=== PATIENT | female | born 1980 | race Caucasian/White ===

== ENCOUNTER 2018-11-04 17:00 | Observation (INO) ==
[2018-11-04 17:54] LABS: Amphetamine Screen,Urine Negative ng/mL (Cutoff=1000); Barbiturate Screen,Urine Negative ng/mL (Cutoff=200); Benzodiazepines Screen,Urine Negative ng/mL (Cutoff=200); Cannabinoid Screen,Urine Negative ng/mL (Cutoff = 50); Cocaine Screen,Urine Negative ng/mL (Cutoff= 300); Opiate Screen,Urine Negative ng/mL (Cutoff=300); Phencyclidine Screen,Urine Negative ng/mL (Cutoff=25)
[2018-11-04 17:55] LABS: Bilirubin,Urine Small (Negative); Blood,Urine Negative (Negative); Clarity,Urine Clear (Clear); Color,Urine Yellow (Yellow); Glucose,Urine (UA) Normal (Normal); Ketones,Urine Negative (Negative); Leukocyte Esterase,Urine Moderate (Negative); Nitrite,Urine Negative (Negative); PH,Urine 5.5 pH Units (5.0-8.0); Protein,Urine Negative (Neg-Trace); Specific Gravity,Urine 1.029 (1.010-1.025); Urobilinogen,Urine Normal (Normal)
[2018-11-04 17:58] LABS: Bacteria,Urine Few per hpf (None-Few); Hyaline Casts,Urine None Seen per lpf (None-Few); RBC,Urine 0-3 per hpf (0-3); Squamous Epithelial Cell,Urine Many per lpf (None-Few)
[2018-11-04 17:59] LABS: Basophils % 0.5 %; Eosinophils # 0.1 K/mcL (0.0-0.6); Eosinophils % 1.4 %; Hematocrit 37.8 % (35.3-44.9); Hemoglobin 12.5 g/dL (11.5-15.4); Immature Granulocytes % 0.2 % (0-4); Lymphocytes # 2.2 K/mcL (0.6-4.6); Lymphocytes % 25.3 %; Mean Corpuscular HGB Conc 33.1 g/dL (31.6-35.5); Mean Corpuscular Hemoglobin 29.3 pg (28.0-33.3); Mean Corpuscular Volume 88.5 fL (83.0-100.0); Monocytes # 0.6 K/mcL (0.0-1.3); Monocytes % 6.4 %; Neutrophils # 5.7 K/mcL (1.6-8.9); Platelet Count 228 K/mcL (140-400); Red Blood Count 4.27 M/mcL (3.82-4.97); Red Cell Distribution Width 12.4 % (11.5-14.5); Segmented Neutrophils % 66.2 %; White Blood Count 8.6 K/mcL (4.3-11.1)
[2018-11-04 18:15] LABS: Acetaminophen < 10 mcg/mL (10-20); BUN/Creatinine Ratio 17 (6-26); Blood Urea Nitrogen 14 mg/dL (6-20); Calcium 9.1 mg/dL (8.6-10.3); Carbon Dioxide 28 mEq/L (23-29); Chloride 105 mEq/L (98-107); Ethanol < 10 mg/dL (Less than 10); Glucose 100 mg/dL (70-105); Osmolality,Calculated 283 (280-300); Potassium 3.7 mEq/L (3.5-5.1); Salicylate < 2.5 mg/dL (15.0-30.0); Sodium 136 mEq/L (136-145); eGFR For African Americans > 60 (> 60); eGFR For Non-African Americans > 60 (> 60)
--- NOTE | 2018-11-04 18:23 | Emergency Department Note ---
Disposition Clinical Impression: Suicidal ideation Disposition: Admitted As Inpatient Condition: Good Referrals: NONE,PCP [Primary Care Provider] - Forms: ED Satisfaction Letter Time of Disposition: 21:18 Psych HPI - General Chief Complaint: ED Psychiatric Symptoms Stated Complaint: Si Time Seen by Provider: 11/04/18 17:06 Source: patient, EMS Limitations: no limitations Nursing Notes Reviewed: Yes Vital Signs Reviewed: Yes - History of Present Illness HPI Narrative: 38 year old female presents to the ED with complaints of SI and states that she has had a hsitory of cutting in the attmempt to kill herself but otherwise was not successful one year ago and [facility]. .Jessica has a history of SI and states that her symtoms are worsening and she told her counselor today that if she went to sleep and didnt wake up that would be ok with her. She otherwise has no plan. Herber has had no changes in medications. Incraesed stressors in like and he rmajor depressive symptoms are worsening. - Related Data Allergies Allergy/AdvReac Type Severity Reaction Status Date / Time Amoxicillin Allergy Hives Verified 11/04/18 17:03 Erythromycin Base Allergy Hives Verified 11/04/18 17:03 Penicillins Allergy Hives Verified 11/04/18 17:03 sulfamethoxazole Allergy Hives Verified 11/04/18 17:03 [From Bactrim] trimethoprim [From Bactrim] Allergy Hives Verified 11/04/18 17:03 Constitutional: Denies: fever, chills, weakness, weight change Eyes: Denies: eye pain, eye discharge, vision change ENT ED: Denies: ear pain, throat pain, dental pain, hearing loss, epistaxis, congestion, dysphagia Cardiovascular: Denies: chest pain, palpitations, dyspnea on exertion, edema, syncope Respiratory: Denies: cough, dyspnea, wheezes, hemoptysis, stridor Gastrointestinal: Denies: abdominal pain, nausea, vomiting, diarrhea, constipation, hematemesis, melena, hematochezia Genitourinary: Denies: dysuria, frequency, hematuria, discharge Musculoskeletal: Denies: back pain, neck pain, arthralgia, myalgia Integumentary: Denies: rash, abrasion, lesions Neurological: Denies: headache, weakness, numbness, paresthesias, confusion, abnormal gait, vertigo Psychiatric: Reports: depression, suicidal thoughts. Denies: anxiety, homicidal thoughts, auditory hallucinations, visual hallucinations Endocrine: Denies: fatigue Hematological/Lymphatic: Denies: easy bleeding, easy bruising Allergic/Immunologic: Denies: facial swelling, urticaria Past Medical History - Past Medical History Medical history: Reports: no medical history Psychiatric history: Reports: ADHD, bipolar, depression, prior suicide attempt - Social History Smoking Status: Current every day smoker Alcohol use: Reports: none Drug use: Reports: none Physical Exam - General Limitations: no limitations General appearance: alert, in no apparent distress - Head Head exam: atraumatic, normocephalic, normal inspection - Eye Eye exam: Present: normal appearance, PERRL, EOMI - Expanded Eye Exam Pupils: Left: reactive - ENT ENT exam: normal exam, normal oropharynx, mucous membranes moist - Expanded ENT Exam External ear exam: Present: normal external inspection Mouth exam: Present: normal external inspection Teeth exam: Present: normal inspection Throat exam: Present: normal inspection - Neck Neck exam: Present: normal inspection, full ROM, trachea midline - Chest Chest inspection: Present: normal inspection, symmetric chest wall rise - Respiratory Respiratory exam: Present: normal lung sounds bilaterally - Cardiovascular Cardiovascular exam: Present: regular rate, normal rhythm, normal heart sounds - Abdominal Exam Abdominal exam: Present: soft, Non-Tender. Absent: tenderness, distention, guarding, rebound, rigidity - Extremities Exam Extremities exam: Present: normal inspection, full ROM. Absent: tenderness, pedal edema - Expanded Upper Extremity Exam Shoulder exam: Present: normal inspection, full ROM Arm exam: Present: normal inspection, full ROM Elbow exam: Present: normal inspection, full ROM Forearm/Wrist exam: Present: normal inspection, full ROM Hand exam: Present: normal inspection, full ROM Vascular exam: Normal: capillary refill, radial pulse - Expanded Lower Extremity Exam Hip/Pelvis exam: Present: normal inspection, full ROM Upper leg exam: Present: normal inspection, full ROM Knee exam: Present: normal inspection, full ROM Lower leg exam: Present: normal inspection, full ROM Ankle exam: Present: normal inspection, full ROM Foot/toe exam: Present: normal inspection, full ROM Neurovascular/Tendon exam: Absent: motor deficit, sensory deficit, tendon deficit - Back Exam Back exam: Present: normal inspection, full ROM. Absent: tenderness - Neurological Exam Neurological exam: Present: alert, oriented X3 - Expanded Neurological Exam Patient oriented to: Present: person, place, time Coma Scale Eye Opening: Spontaneous Coma Scale Motor Response: Obeys Commands Coma Scale Verbal Response: Oriented Coma Scale Total: 15 - Psychiatric Psychiatric exam: Present: depressed, flat affect - Skin Skin exam: Present: warm, dry, intact, normal color Course Course Narrative: I will treat with ativan at this time and also medically clear patinet then consult 1A - Reevaluation(s) Reevaluation #1: patient is medically cleared now. 1A constuled Time: 18:24 - Consultations Consultation #1: discussed case with 1A. She has been accepted to their facility. Time: 21:18 Vital Signs Temperature 98.5 F 11/04/18 17:08 Pulse Rate 86 11/04/18 17:08 Respiratory Rate 16 11/04/18 17:08 Blood Pressure 125/90 11/04/18 17:08 O2 Sat by Pulse Oximetry 100 11/04/18 17:08 Temperature 98.5 F 11/04/18 17:08 Pulse Rate 86 11/04/18 17:08 Respiratory Rate 16 11/04/18 17:08 Blood Pressure 125/90 11/04/18 17:08 O2 Sat by Pulse Oximetry 100 11/04/18 17:08 Oxygen Delivery Oxygen Delivery Room Air Psych - Lab Data Result diagrams: 11/04/18 17:44 11/04/18 17:44 Lab Results 11/04/18 11/04/18 11/04/18 Range/Units 17:34 17:34 17:44 WBC 8.6 (4.3-11.1) K/mcL RBC 4.27 (3.82-4.97) M/mcL Hgb 12.5 (11.5-15.4) g/dL Hct 37.8 (35.3-44.9) % MCV 88.5 (83.0-100.0) fL MCH 29.3 (28.0-33.3) pg MCHC 33.1 (31.6-35.5) g/dL RDW 12.4 (11.5-14.5) % Plt Count 228 (140-400) K/mcL MPV 10.0 (9.4-12.4) fL Immature Gran % 0.2 (0-4) % Seg Neutrophils % 66.2 % Lymphocytes % 25.3 % Monocytes % 6.4 % Eosinophils % 1.4 % Basophils % 0.5 % Neutrophils # 5.7 (1.6-8.9) K/mcL Lymphocytes # 2.2 (0.6-4.6) K/mcL Monocytes # 0.6 (0.0-1.3) K/mcL Eosinophils # 0.1 (0.0-0.6) K/mcL Basophils # 0.0 (0.0-0.2) K/mcL Sodium (136-145) mEq/L Potassium (3.5-5.1) mEq/L Chloride (98-107) mEq/L Carbon Dioxide (23-29) mEq/L BUN (6-20) mg/dL Creatinine (0.60-1.20) mg/dL Est GFR ( Amer) (> 60) Est GFR (Non-Af Amer) (> 60) BUN/Creatinine Ratio (6-26) Glucose (70-105) mg/dL Calculated Osmolality (280-300) Calcium (8.6-10.3) mg/dL Urine Color Yellow (Yellow) Urine Clarity Clear (Clear) Urine pH 5.5 (5.0-8.0) pH Units Ur Specific [place] 1.029 H (1.010-1.025) Urine Protein Negative (Neg-Trace) mg/dL Urine Glucose (UA) Normal (Normal) mg/dL Urine Ketones Negative (Negative) mg/dL Urine Blood Negative (Negative) Urine Nitrite Negative (Negative) Urine Bilirubin Small H (Negative) Urine Urobilinogen Normal (Normal) mg/dL Ur Leukocyte Esterase Moderate H (Negative) Urine Microscopic RBC 0-3 (0-3) per hpf Urine Microscopic WBC 5-15 H (0-3) per hpf Ur Squamous Epith Cells Many H (None-Few) per lpf Urine Bacteria Few (None-Few) per hpf Hyaline Casts None Seen (None-Few) per lpf Salicylates (15.0-30.0) mg/dL Urine Opiates Screen Negative (Dkwgel=355) ng/mL Ur Buprenorphine Scrn Negative (Cutoff=5) ng/mL Acetaminophen (10-20) mcg/mL Ur Barbiturates Screen Negative (Spdnmf=332) ng/mL Ur Phencyclidine Scrn Negative (Cutoff=25) ng/mL Ur Amphetamines Screen Negative (Dqhvar=8314) ng/mL U Benzodiazepines Scrn Negative (Pxylcy=002) ng/mL Urine Cocaine Screen Negative (Cutoff= 300) ng/mL U Marijuana (THC) Screen Negative (Cutoff = 50) ng/mL Ur Drug Screen Interp See Below Ethyl Alcohol (Less than 10) mg/dL 11/04/18 Range/Units 17:44 WBC (4.3-11.1) K/mcL RBC (3.82-4.97) M/mcL Hgb (11.5-15.4) g/dL Hct (35.3-44.9) % MCV (83.0-100.0) fL MCH (28.0-33.3) pg MCHC (31.6-35.5) g/dL RDW (11.5-14.5) % Plt Count (140-400) K/mcL MPV (9.4-12.4) fL Immature Gran % (0-4) % Seg Neutrophils % % Lymphocytes % % Monocytes % % Eosinophils % % Basophils % % Neutrophils # (1.6-8.9) K/mcL Lymphocytes # (0.6-4.6) K/mcL Monocytes # (0.0-1.3) K/mcL Eosinophils # (0.0-0.6) K/mcL Basophils # (0.0-0.2) K/mcL Sodium 136 (136-145) mEq/L Potassium 3.7 (3.5-5.1) mEq/L Chloride 105 (98-107) mEq/L Carbon Dioxide 28 (23-29) mEq/L BUN 14 (6-20) mg/dL Creatinine 0.82 (0.60-1.20) mg/dL Est GFR ( Amer) > 60 (> 60) Est GFR (Non-Af Amer) > 60 (> 60) BUN/Creatinine Ratio 17 (6-26) Glucose 100 (70-105) mg/dL Calculated Osmolality 283 (280-300) Calcium 9.1 (8.6-10.3) mg/dL Urine Color (Yellow) Urine Clarity (Clear) Urine pH (5.0-8.0) pH Units Ur Specific [place] (1.010-1.025) Urine Protein (Neg-Trace) mg/dL Urine Glucose (UA) (Normal) mg/dL Urine Ketones (Negative) mg/dL Urine Blood (Negative) Urine Nitrite (Negative) Urine Bilirubin (Negative) Urine Urobilinogen (Normal) mg/dL Ur Leukocyte Esterase (Negative) Urine Microscopic RBC (0-3) per hpf Urine Microscopic WBC (0-3) per hpf Ur Squamous Epith Cells (None-Few) per lpf Urine Bacteria (None-Few) per hpf Hyaline Casts (None-Few) per lpf Salicylates < 2.5 L (15.0-30.0) mg/dL Urine Opiates Screen (Wapjdy=023) ng/mL Ur Buprenorphine Scrn (Cutoff=5) ng/mL Acetaminophen < 10 L (10-20) mcg/mL Ur Barbiturates Screen (Sfecsm=694) ng/mL Ur Phencyclidine Scrn (Cutoff=25) ng/mL Ur Amphetamines Screen (Jqwkby=3486) ng/mL U Benzodiazepines Scrn (Xqfnux=509) ng/mL Urine Cocaine Screen (Cutoff= 300) ng/mL U Marijuana (THC) Screen (Cutoff = 50) ng/mL Ur Drug Screen Interp Ethyl Alcohol < 10 (Less than 10) mg/dL Psychiatric Medical Clearance - Medical Clearance Checklist Medical History: No Social History Section defined Current Vitals: Last Vital Signs Temp 98.5 F 11/04/18 17:08 Pulse 86 11/04/18 17:08 Resp 16 11/04/18 17:08 BP 125/90 11/04/18 17:08 Pulse Ox 100 11/04/18 17:08 Psychiatric Lab Panel: Drug Levels and Toxicity 11/04/18 11/04/18 17:34 17:44 Urine Opiates Screen Negative Acetaminophen < 10 L Ur Barbiturates Screen Negative Ur Phencyclidine Scrn Negative Ur Amphetamines Screen Negative U Benzodiazepines Scrn Negative Urine Cocaine Screen Negative U Marijuana (THC) Screen Negative Ethyl Alcohol < 10 Abnormal Labs: Abnormal lab results Ur Specific [place] 1.029 (1.010-1.025) H 11/04/18 17:34 Urine Bilirubin Small (Negative) H 11/04/18 17:34 Ur Leukocyte Esterase Moderate (Negative) H 11/04/18 17:34 Urine Microscopic WBC 5-15 per hpf (0-3) H 11/04/18 17:34 Ur Squamous Epith Cells Many per lpf (None-Few) H 11/04/18 17:34 Salicylates < 2.5 mg/dL (15.0-30.0) L 11/04/18 17:44 Acetaminophen < 10 mcg/mL (10-20) L 11/04/18 17:44 Statement of Medical Clearance: I have evaluated the patient, reviewed diagnostic information, and certify that the patient's medical condition is sufficiently stable that transfer to the [facility] hiatric unit does not pose a significant risk of deterioration.
[2018-11-04] MEDS ORDERED: *HR* LORazepam 0.5 MG TABLET PO ONE (18:26)
[2018-11-04] MEDS ORDERED: traZODone 50 MG TABLET PO PRN (21:48)
[2018-11-04] MEDS ORDERED: Ibuprofen 400 MG TABLET PO PRN (21:48)
[2018-11-04] MEDS ORDERED: hydrOXYzine pamoate 25 MG CAPSULE PO PRN (21:48)
[2018-11-04] MEDS ORDERED: *HR* LORazepam 1 MG TABLET PO PRN (21:48)
[2018-11-04] MEDS ORDERED: MOM Conc 10 ML UD.LIQ PO PRN (21:48)
[2018-11-04] MEDS ORDERED: Haloperidol Lactate 5 MG/ML VIAL IM PRN (21:48)
[2018-11-04] MEDS ORDERED: *HR* LORazepam 2 MG/ML VIAL IM PRN (21:48)
[2018-11-04] MEDS ORDERED: Mag Hydrox/Al Hydrox/Simeth 30 ML UDC PO PRN (21:48)
--- NOTE | 2018-11-05 08:21 | Discharge Summary ---
Date of Encounter: 11/05/18 Time of Encounter: 07:55 History of Present Illness Chief complaint: I was suicidal Admitted From: Emergency Dept History of Present Illness: Ms. Oneal is a 38 year old female who presented from her recovery student success counselor [facility] rehabilitation facility where she has been for over one month with worsening depression and some passive thoughts of harming herself. She said she felt her Prozac was no longer working. This morning she denies suicidal ideations, intent, or plan. She does wish to change medications. She is future oriented toward getting back to [facility] for further treatment of he r methamphetamine addiction. She reports that she at times has sad mood, decreased interest, feelings of guilt and worthlessness, low energy, and decreased interests. She reports that she does not have a history of manic symptoms such as elevated irritable mood, grandiosity, decreased need for sleep, excessive speech. She denies psychotic symptoms. Past Med Surg Social Fam HX - Past Medical History Medical history: no medical history - Past Psychiatric History Psychiatric history: Reports: ADHD, depression, previous psychiatric hospitalization. Denies: prior suicide attempt Past psychiatric history details: Patient was hospitalized in June 2018. She has been on Prozac 40 mg for about 6 months. She is also on Strattera 40 and Vistaril 50. She is previously been tried on Latuda Lamictal and Zoloft. She denies prior suicide attempts. Family psychiatric history: Yes Family Psychiatric History Details: Her mother has depression and anxiety Family History of Suicide: None - Past Surgical History Surgical History: no surgical history - Social History Smoking Status: Current every day smoker Smokeless Tobacco Status: No Alcohol use: none Drug use: none Occupational status: unemployed Current living situation: Other Activity Level: Independent ambulation Recent Out of Country Travel Within the Last 8 Weeks: No Exposure or Possible Exposure to Illness During Travel: No Additional social history: She is staying at the [facility]. Methamphetamines were her drug of choice. Medications - Discharge Medications Prescriptions: traZODone [TraZODone] 50 mg PO HS PRN #15 tablet PRN Reason: Insomnia hydrOXYzine pamoate [Vistaril] 25 mg PO TID PRN #45 capsule PRN Reason: Anxiety BuPROPion XL (24 HR) [Wellbutrin Xl] 150 mg PO DAILY #15 tab.er.24h Atomoxetine [Strattera] 40 mg PO DAILY #0 capsule 11/05/18 [Rx] BuPROPion XL (24 HR) [Wellbutrin Xl] 150 mg PO DAILY #15 tab.er.24h 11/05/18 [Rx] hydrOXYzine pamoate [Vistaril] 25 mg PO TID PRN #45 capsule 11/05/18 [Rx] traZODone [TraZODone] 50 mg PO HS PRN #15 tablet 11/05/18 [Rx] Allergy/AdvReac Type Severity Reaction Status Date / Time Amoxicillin Allergy Hives Verified 11/05/18 08:59 Erythromycin Base Allergy Hives Verified 11/05/18 08:59 Penicillins Allergy Hives Verified 11/05/18 08:59 sulfamethoxazole Allergy Itching Verified 11/05/18 08:59 [From Bactrim] trimethoprim [From Bactrim] Allergy Itching Verified 11/05/18 08:59 Review of Systems Constitutional: Denies: fever Eyes: Denies: eye pain Ears, Nose, Throat: Denies: ear pain Cardiovascular: Denies: chest pain Respiratory: Denies: cough Gastrointestinal: Denies: abdominal pain Genitourinary female: Denies: urgency Musculoskeletal: Reports: back pain Integumentary: Denies: rash Neurological: Denies: headache Psychiatric: Reports: depression. Denies: suicidal ideation, homicidal id eation, auditory hallucinations, visual hallucinations Endocrine: Reports: fatigue Hematologic/Lymphatic: Denies: easy bleeding Allergic/Immunologic: Denies: facial swelling Exam - HEENT Head exam IM: Present: atraumatic Eye exam IM: Present: EOMI ENT exam IM: Present: mucous membranes moist - Neurological Neurological exam: Present: CN II-XII intact - Respiratory Respiratory exam IM: Absent: respiratory distress - GI/Abdominal GI/Abdominal exam IM: Absent: tenderness - Extremities Extremities exam IM: Present: full ROM - Skin Skin exam IM: Present: dry - Constitutional Vitals: Temp Pulse Resp BP Pulse Ox 98 F 81 16 112/78 97 11/04/18 23:09 11/04/18 23:09 11/04/18 23:09 11/04/18 23:09 11/04/18 23:09 General appearance: age & developmentally appropriate, well-groomed, well- nourished - Musculoskeletal Gait: normal Station: relaxed Strength & Tone: normal for patient - Psychiatric Patient Orientation: Yes Person, Yes Time, Yes Place, Yes Circumstance Level of alertness: Alert Behavior: calm, cooperative Psychomotor activity: Normal Eye Contact: Maintains Eye Contact Mood Description: Euthymic/stable Patient description of mood: ok Affect description: congruent with mood, full range Speech Volume: Normal Speech pattern: normal rate, normal rhythm, normal tone, fluent, spontaneous Language & Vocabulary: consistent with education Thought Process: Linear, Goal Oriented Thought Content: No Suicidal ideation, No Homicidal ideation, No Overt delusions Perceptual Disturbances: No Auditory hallucinations, No Visual hallucinations Attention Span Ability: Capable of Focused Attention Memory Description: Grossly Intact Patient Reliability: Reliable Historian Fund of knowledge: Yes abstraction ability, Yes average, Yes aware of current events Intelligence Estimate: Average Judgment: Good Insight: Full Results - Drug Levels and Toxicology Drug Levels and Toxicology: Drug Levels and Toxicity 11/04/18 11/04/18 17:34 17:44 Urine Opiates Screen Negative Acetaminophen < 10 L Ur Barbiturates Screen Negative Ur Phencyclidine Scrn Negative Ur Amphetamines Screen Negative U Benzodiazepines Scrn Negative Urine Cocaine Screen Negative U Marijuana (THC) Screen Negative Ethyl Alcohol < 10 - Labs Labs: Laboratory Last Values WBC 8.6 K/mcL (4.3-11.1) 11/04/18 17:44 RBC 4.27 M/mcL (3.82-4.97) 11/04/18 17:44 Hgb 12.5 g/dL (11.5-15.4) 11/04/18 17:44 Hct 37.8 % (35.3-44.9) 11/04/18 17:44 MCV 88.5 fL (83.0-100.0) 11/04/18 17:44 MCH 29.3 pg (28.0-33.3) 11/04/18 17:44 MCHC 33.1 g/dL (31.6-35.5) 11/04/18 17:44 RDW 12.4 % (11.5-14.5) 11/04/18 17:44 Plt Count 228 K/mcL (140-400) 11/04/18 17:44 MPV 10.0 fL (9.4-12.4) 11/04/18 17:44 Immature Gran % 0.2 % (0-4) 11/04/18 17:44 Seg Neutrophils % 66.2 % 11/04/18 17:44 Lymphocytes % 25.3 % 11/04/18 17:44 Monocytes % 6.4 % 11/04/18 17:44 Eosinophils % 1.4 % 11/04/18 17:44 Basophils % 0.5 % 11/04/18 17:44 Neutrophils # 5.7 K/mcL (1.6-8.9) 11/04/18 17:44 Lymphocytes # 2.2 K/mcL (0.6-4.6) 11/04/18 17:44 Monocytes # 0.6 K/mcL (0.0-1.3) 11/04/18 17:44 Eosinophils # 0.1 K/mcL (0.0-0.6) 11/04/18 17:44 Basophils # 0.0 K/mcL (0.0-0.2) 11/04/18 17:44 Sodium 136 mEq/L (136-145) 11/04/18 17:44 Potassium 3.7 mEq/L (3.5-5.1) 11/04/18 17:44 Chloride 105 mEq/L (98-107) 11/04/18 17:44 Carbon Dioxide 28 mEq/L (23-29) 11/04/18 17:44 BUN 14 mg/dL (6-20) 11/04/18 17:44 Creatinine 0.82 mg/dL (0.60-1.20) 11/04/18 17:44 Est GFR ( Amer) > 60 (> 60) 11/04/18 17:44 Est GFR (Non-Af Amer) > 60 (> 60) 11/04/18 17:44 BUN/Creatinine Ratio 17 (6-26) 11/04/18 17:44 Glucose 100 mg/dL (70-105) 11/04/18 17:44 Calculated Osmolality 283 (280-300) 11/04/18 17:44 Calcium 9.1 mg/dL (8.6-10.3) 11/04/18 17:44 Urine Color Yellow (Yellow) 11/04/18 17:34 Urine Clarity Clear (Clear) 11/04/18 17:34 Urine pH 5.5 pH Units (5.0-8.0) 11/04/18 17:34 Ur Specific [place] 1.029 (1.010-1.025) H 11/04/18 17:34 Urine Protein Negative mg/dL (Neg-Trace) 11/04/18 17:34 Urine Glucose (UA) Normal mg/dL (Normal) 11/04/18 17:34 Urine Ketones Negative mg/dL (Negative) 11/04/18 17:34 Urine Blood Negative (Negative) 11/04/18 17:34 Urine Nitrite Negative (Negative) 11/04/18 17:34 Urine Bilirubin Small (Negative) H 11/04/18 17:34 Urine Urobilinogen Normal mg/dL (Normal) 11/04/18 17:34 Ur Leukocyte Esterase Moderate (Negative) H 11/04/18 17:34 Urine Microscopic RBC 0-3 per hpf (0-3) 11/04/18 17:34 Urine Microscopic WBC 5-15 per hpf (0-3) H 11/04/18 17:34 Ur Squamous Epith Cells Many per lpf (None-Few) H 11/04/18 17:34 Urine Bacteria Few per hpf (None-Few) 11/04/18 17:34 Hyaline Casts None Seen per lpf (None-Few) 11/04/18 17:34 Salicylates < 2.5 mg/dL (15.0-30.0) L 11/04/18 17:44 Urine Opiates Screen Negative ng/mL (Xrwqjs=024) 11/04/18 17:34 Ur Buprenorphine Scrn Negative ng/mL (Cutoff=5) 11/04/18 17:34 Acetaminophen < 10 mcg/mL (10-20) L 11/04/18 17:44 Ur Barbiturates Screen Negative ng/mL (Hopblu=164) 11/04/18 17:34 Ur Phencyclidine Scrn Negative ng/mL (Cutoff=25) 11/04/18 17:34 Ur Amphetamines Screen Negative ng/mL (Utmaoy=9362) 11/04/18 17:34 U Benzodiazepines Scrn Negative ng/mL (Wvruff=418) 11/04/18 17:34 Urine Cocaine Screen Negative ng/mL (Cutoff= 300) 11/04/18 17:34 U Marijuana (THC) Screen Negative ng/mL (Cutoff = 50) 11/04/18 17:34 Ur Drug Screen Interp See Below 11/04/18 17:34 Ethyl Alcohol < 10 mg/dL (Less than 10) 11/04/18 17:44 Diagnosis - Discharge Diagnosis (1) Major depression Status: Acute Qualifiers: Major depression recurrence: recurrent Active/Remission status: currently active Major depression episode severity: moderate Qualified Code(s): F33.1 - Major depressive disorder, recurrent, moderate Assessment and Plan - Patient/Caregiver Discharge Instructions Activity: resume usual activities as tolerated Diet: regular diet Additional Instructions: Continue current medications. Follow up with outpatient mental health. Encourage continued therapy in a group or individual setting. The patient was discharged to home. - Follow up Plan Follow up with: NONE,PCP [Primary Care Provider] - Functional capacity at discharge: independent ambulation Overall status at discharge: Stable Disposition: Home, Self-Care Provider Date of admission: 11/04/18 21:35 Primary care physician: PCP NONE Discharging clinician: Tona Mirza Hospital Course Hospital course: Ms. Oneal is a 38 year old female who was admitted for depression and suicidal thoughts. She was kept overnight as an observation patient in the morning she longer had suicidal or homicidal thoughts, ideations, or plans. She was future oriented. She was agreeable to changing her medication she felt the Prozac was no longer helpful so this was discontinued and she was started on Tenex 150 by mouth every morning. We discussed risk benefit side effects of this alternative treatment options. She was continued on her Strattera and Vistaril and trazodone was added as needed for insomnia. He had no psychotic symptoms. She was future oriented. She did not meet probate criteria Time spent discussing smoking cessation with patient: 3 to 10 minutes Does patient wish to continue nicotine replacement upon disc: No - Time Spent with Patient Total time spent providing and/or coordinating discharge services: 45 Greater than 30 minutes Specific discharge activities: Interval history reviewed. Available labs reviewed . Psychotherapy provided. Patient had an opportunity to ask questions and address concerns. Patient was in agreement with the treatment plan. The risks benefits and side effects of medications were discussed with the patient, including alternatives and treatment. The patient was educated on the abstaining from any alcohol or illicit substances, following up with all scheduled appoi ntments, and taking all medications as prescribed. Procedures - Procedures Procedures: Medication Management, Crisis Stabilization, Supportive Therapy, Group Therapy, Psychoeducational Therapy Quality - Multiple Antipsychotics Patient discharged on 2 or more antipsychotic medications: No
[2018-11-05] MEDS ORDERED: hydrOXYzine pamoate 25 MG CAPSULE PO PRN (08:47)
[2018-11-05] MEDS ORDERED: BuPROPion XL (24 HR) 150 MG TABLET PO SCH (09:00)
[2018-11-05 13:47] VITALS: BP 114/79
== END 2018-11-05 14:12 | disposition home or self-care (01) ==
LOC: EMEROOARM 17:00 → MERGE 21:35 → 1ANU 21:35 → INTOOBSV 21:35 → 1ANU 22:00
PROVIDERS: ADMIT Psychiatry & Neurology Psychiatry; ATTEND Psychiatry & Neurology Psychiatry